=== PATIENT | female | born 1965 | race Hispanic/Latino ===

== ENCOUNTER 2024-11-07 07:38 | Outpatient (CLI) | payer OTHER ==
[2024-11-07] MEDS ORDERED: Iopamidol 300 61% 100 ML VIAL FS ONE (10:20)
== END 2024-11-07 07:39 | disposition home or self-care (01) ==
LOC: CSHCT 07:38
PROVIDERS: ATTEND Internal Medicine Gastroenterology
DX: R10.9 Unspecified abdominal pain (principal); K21.00 Gastro-esophageal reflux disease with esophagitis, without bleeding; K59.00 Constipation, unspecified; K22.89 Other specified disease of esophagus
CPT/HCPCS: 74177

== ENCOUNTER 2024-11-09 20:39 | Emergency (ER) | payer SELFPAY ==
[2024-11-09] MEDS ORDERED: Ketorolac Tromethamine 30 MG (1 mL) VIAL ONE (21:29)
[2024-11-09 21:34] LABS: #Basophils Less than 0.03 10x3/uL (0.0-0.2); #Eosinophils 0.08 10x3/uL (0.0-0.5); #Monocytes 0.46 10x3/uL (0.0-1.1); #Neutrophils 3.14 10x3/uL (1.5-8.4); %Basophils 0.2 % (0.0-2.0); %Eosinophils 1.3 % (0.0-6.0); %Lymphocytes 41.1 % (18.0-47.0); %Monocytes 7.3 % (0.0-10.0); %Neutrophils 49.9 % (40.0-75.0); Hematocrit 38.7 % (34.9-44.5); Hemoglobin 13.3 g/dL (12.0-15.5); Mean Corpuscular Hemoglobin 30.3 pg (27.0-33.0); Mean Corpuscular Volume 88.2 fL (81.6-98.3); Platelet Count 256 10x3/uL (150-450); Red Blood Cell (RBC) Count 4.39 10x6/uL (3.90-5.03); White Blood Cell (WBC) Count 6.28 10x3/uL (3.5-10.5)
[2024-11-09 21:58] LABS: ALT (SGPT) 31 U/L (Less than 34); AST (SGOT) 29 U/L (11-34); Albumin 4.2 g/dL (3.1-4.5); Alkaline Phosphatase 58 U/L (40-110); Anion Gap 14 mmol/L (10-20); BUN (Urea Nitrogen) 22 mg/dL (9.8-20.1); Bilirubin, Total 0.9 mg/dL (0.3-1.2); Calc. Creatinine Clearance 0 mL/min (70-130); Calcium 9.8 mg/dL (7.8-10.44); Carbon Dioxide 24 mmol/L (22-29); Chloride 103 mmol/L (98-107); Globulin 2.8 g/dL (2.4-3.5); Glucose 98 mg/dL (70-105); Potassium 3.9 mmol/L (3.5-5.1); Sodium 137 mmol/L (136-145)
[2024-11-09 22:00] LABS: Troponin I Less than 0.010 ng/mL (< 0.028)
== END 2024-11-09 23:10 ==
LOC: CSHERS 20:39
DX: M26.603 Bilateral temporomandibular joint disorder, unspecified (principal)
CPT/HCPCS: 71045; 80053; 84484; 85025; 93005; 96374; J1885